=== PATIENT | female | born 1945 | race Hispanic/Latino ===

== ENCOUNTER 2022-09-26 09:51 | Emergency (ER) | payer MEDICARE ==
[~2022-09-26] VITALS: Ht 154.9 cm; Wt 72.6 kg
[2022-09-26 10:27] LABS: BASOPHILS % (AUTO) 0.4 % (0.0-5.0); EOSINOPHILS % (AUTO) 0.6 % (0.0-8.0); LYMPHOCYTES % (AUTO) 18.9 % (21.0-51.0); MEAN CORPUSCULAR HEMOGLOBIN 29.5 pg (27.0-33.0); MEAN CORPUSCULAR HGB CONC 33.5 g/dL (32.0-36.0); MEAN CORPUSCULAR VOLUME 88.1 fL (79-99); MONOCYTES % (AUTO) 7.9 % (3.0-13.0); PLATELET COUNT (AUTO) 206 K/uL (130-400); RED BLOOD CELL COUNT(AUTO) 4.54 MIL/uL (4.00-5.50); RED CELL DISTRIBUTION WIDTH 12.7 % (11.0-15.5); WHITE BLOOD COUNT (AUTO) 5.1 K/uL (4.8-10.8)
[2022-09-26 10:47] LABS: CREATININE 0.8 mg/dL (0.5-1.5); POTASSIUM 3.3 mmol/L (3.5-5.1)
[2022-09-26 10:52] LABS: ALBUMIN 3.6 g/dL (3.5-5.0)
[2022-09-26 11:20] LABS: APPEARANCE,URINE CLEAR (CLEAR); BILIRUBIN,URINE NEGATIVE (NEGATIVE); COLOR,URINE YELLOW (YELLOW); GLUCOSE, URINE (UA) NEGATIVE (NEGATIVE); KETONES,URINE NEGATIVE (NEGATIVE); LEUKOCYTE ESTERASE ,URINE NEGATIVE Leu/uL (NEGATIVE); NITRATE,URINE NEGATIVE (NEGATIVE); OCCULT BLOOD,URINE NEGATIVE (NEGATIVE); PROTEIN,URINE 20 mg/dL (NEGATIVE); UROBILINOGEN,URINE 0.2 mg/dL (0.2-1.0)
[2022-09-26 14:03] VITALS: BP 138/61
== END 2022-09-26 14:02 | disposition home or self-care (01) ==
LOC: EDH 09:51
DX: I10 Essential (primary) hypertension (principal); Z88.8 Allergy status to other drugs, medicaments and biological substances; Z98.890 Other specified postprocedural states
CPT/HCPCS: 36415; 70450; 80053; 81003; 84484; 85025; 93005

== ENCOUNTER 2023-09-06 15:58 | Emergency (ER) | payer MEDICARE ==
[~2023-09-06] VITALS: Ht 152.4 cm; Wt 68.9 kg
[2023-09-06] MEDS ORDERED: KETOROLAC 60 MG VIAL (30MG/ML) IM ONE (16:50)
[2023-09-06 16:54] LABS: BASOPHILS # (AUTO) 0.03 K/uL (0.00-0.20); BASOPHILS % (AUTO) 0.6 % (0.0-5.0); EOSINOPHILS # (AUTO) 0.09 K/uL (0.00-0.70); EOSINOPHILS % (AUTO) 1.7 % (0.0-8.0); HEMATOCRIT 37.2 % (36-48); IMMATURE GRANULOCYTE ABSOLUTE 0.02 K/uL (0-1); LYMPHOCYTES # (AUTO) 1.5 K/uL (1.0-4.8); LYMPHOCYTES % (AUTO) 29.1 % (21.0-51.0); MEAN CORPUSCULAR HEMOGLOBIN 29.7 pg (27.0-33.0); MEAN CORPUSCULAR HGB CONC 33.3 g/dL (32.0-36.0); MONOCYTES # (AUTO) 0.5 K/uL (0.1-1.0); MONOCYTES % (AUTO) 8.9 % (3.0-13.0); NEUTROPHILS # (AUTO) 3.1 K/uL (1.8-7.7); NEUTROPHILS % (AUTO) 59.3 % (40.0-77.0); PLATELET COUNT (AUTO) 220 K/uL (130-400); RED BLOOD CELL COUNT(AUTO) 4.18 MIL/uL (4.00-5.50); RED CELL DISTRIBUTION WIDTH 12.7 % (11.0-15.5); WHITE BLOOD COUNT (AUTO) 5.3 K/uL (4.8-10.8)
[2023-09-06] MEDS ORDERED: KETOROLAC 30MG VIAL (30MG/ML) IM ONE (17:00)
[2023-09-06 17:04] LABS: POTASSIUM 3.4 mmol/L (3.5-5.1)
[2023-09-06 17:15] LABS: ALBUMIN 3.3 g/dL (3.5-5.0); BILIRUBIN,TOTAL 0.8 mg/dL (0.2-1.0); TOTAL PROTEIN, SERUM 7.2 g/dL (6.0-8.3)
[2023-09-06 18:38] VITALS: BP 164/79; PULSE 60; RESP 18; O2SAT 99
== END 2023-09-06 18:40 | disposition home or self-care (01) ==
LOC: EDH 15:58
DX: K65.4 Sclerosing mesenteritis (principal); M79.652 Pain in left thigh; M25.552 Pain in left hip; I10 Essential (primary) hypertension; Z98.890 Other specified postprocedural states; Z88.8 Allergy status to other drugs, medicaments and biological substances
CPT/HCPCS: 99285; 73700; 80053; 85025; 36415; 72192; 96372; J1885

== ENCOUNTER 2025-01-08 18:03 | Emergency (ER) | payer MEDICARE ==
[~2025-01-08] VITALS: Ht 157.5 cm; Wt 71.2 kg
[2025-01-08 18:43] LABS: BASOPHILS # (AUTO) 0.02 K/uL (0.00-0.20); BASOPHILS % (AUTO) 0.4 % (0.0-5.0); EOSINOPHILS # (AUTO) 0.11 K/uL (0.00-0.70); EOSINOPHILS % (AUTO) 2.2 % (0.0-8.0); HEMATOCRIT 38.3 % (36-48); IMMATURE GRANULOCYTE ABSOLUTE 0.01 K/uL (0-1); LYMPHOCYTES # (AUTO) 1.4 K/uL (1.0-4.8); MEAN CORPUSCULAR HEMOGLOBIN 29.9 pg (27.0-33.0); MEAN CORPUSCULAR HGB CONC 33.2 g/dL (32.0-36.0); MEAN CORPUSCULAR VOLUME 90.1 fL (79-99); MONOCYTES # (AUTO) 0.6 K/uL (0.1-1.0); MONOCYTES % (AUTO) 11.8 % (3.0-13.0); NEUTROPHILS # (AUTO) 2.8 K/uL (1.8-7.7); NEUTROPHILS % (AUTO) 56.4 % (40.0-77.0); PLATELET COUNT (AUTO) 203 K/uL (130-400); RED BLOOD CELL COUNT(AUTO) 4.25 MIL/uL (4.00-5.50); RED CELL DISTRIBUTION WIDTH 12.8 % (11.0-15.5); WHITE BLOOD COUNT (AUTO) 4.9 K/uL (4.8-10.8)
[2025-01-08 18:58] LABS: POTASSIUM 3.8 mmol/L (3.5-5.1)
[2025-01-08 19:09] LABS: B-TYPE NATRIURETIC PEPTIDE 52 pg/mL (0-100)
--- NOTE | 2025-01-08 19:31 | HMCIMG ---
CHEST 1VW CLINICAL HISTORY: CHEST PAIN COMPARISON: None TECHNIQUE: Single view of the chest was obtained. FINDINGS: Lungs are clear. The cardiac size and mediastinum are unremarkable. The bony structures are within normal limits. IMPRESSION: No acute cardiopulmonary process identified.
[2025-01-08] MEDS: ketOROlac 15MG/ML VIAL (15MG/ML) IV ONE (20:05)
[2025-01-08 20:46] LABS: APPEARANCE,URINE CLEAR (CLEAR); BILIRUBIN,URINE NEGATIVE (NEGATIVE); COLOR,URINE COLORLESS (YELLOW); GLUCOSE, URINE (UA) NEGATIVE (NEGATIVE); KETONES,URINE NEGATIVE (NEGATIVE); LEUKOCYTE ESTERASE ,URINE 250 Leu/uL (NEGATIVE); NITRATE,URINE NEGATIVE (NEGATIVE); PROTEIN,URINE NEGATIVE (NEGATIVE); UROBILINOGEN,URINE 0.2 mg/dL (0.2-1.0)
--- NOTE | 2025-01-08 20:49 | HMCIMG ---
SHOULDER COMP 2+VWS LT CLINICAL HISTORY: painful rom COMPARISON: None TECHNIQUE: 2 images were obtained. FINDINGS: No obvious fracture or dislocation. No joint effusion. The soft tissues appear unremarkable. No radiopaque foreign bodies. IMPRESSION: No acute findings.
[2025-01-08 20:58] LABS: ADD UA MICROSCOPIC YES
[2025-01-08 21:00] LABS: BACTERIA,URINE RARE /HPF (None Seen); RBC,URINE 0-1 /HPF (0-1); SQUAMOUS EPITHELIAL CELL,UR RARE /HPF (0-2)
[2025-01-08] MEDS ORDERED: KETO10TA2 PO (21:01)
--- NOTE | 2025-01-08 21:06 | ERN ---
General Chief Complaint: Chest Pain Stated Complaint: CHEST PAIN Time Seen by MD: 18:07 Time Seen by Midlevel: 18:07 Source: patient History of Present Illness Initial Comments The patient is a 79-year-old female with a past medical history of hypertension presenting to the emergency department for evaluation of left-sided chest pain and left upper arm pain that started last night. Your concerns the patient more is the pain overlying her biceps area. The pain is worse with movement. Denies any recent injury or fall. Denies any other symptoms at this time. Allergies: Coded Allergies: iodine (Unverified Allergy, Unknown, 09/26/22) Past Medical History Past Medical History: Hypertension Past Surgical History: Other Surgical History Other: THYROID ROS Dictation CONSTITUTIONAL: Negative except for HPI HEAD/FACE: Negative except for HPI EENT: Negative except for HPI RESPIRATORY: Negative except for HPI GASTROINTESTINAL/ABDOMINAL: Negative except for HPI GENITOURINARY: Negative except for HPI MUSCULOSKELETAL: Negative except for HPI INTEGUMENTARY: Negative except for HPI NEUROLOGICAL/PSYCH: Negative except for HPI HEMATOLOGIC/LYMPHATIC: Negative except for HPI All Systems Negative, Except as noted above. 13 point review of systems assessed and all negative except for above. Physical Exam Physical Exam Dictation Vital Signs reviewed General Appearance: Alert, oriented x 3, no acute distress, well developed, nourished. Head and Face: non-traumatic. Eyes: PERRL, pink conjunctivas, eyelid no trauma, anterior chamber with arcus senilis. Ears: Pinnas intact and no signs of trauma or erythema ear canals clear and no discharge TM no erythema Nose: No discharge, no bleeding. Oropharynx: Mouth normal, tongue pink, pharynx clear,no erythema, tonsils no exudates, no abscesses noted, mucous membrane moist Neck: Supple, non-tender, no thyromegaly, no masses, no JVD, no bruits Breast:Deferred Chest:No tenderness, no crepitus, no paradoxical movement, no retractions Lungs:Clear, well-ventilated, symmetric, no rales, no wheezing, no rhonchi, no stridor, good breath sounds bilaterally Heart: Regular rate, regular rhythm, no murmur, no gallops Vascular: no peripheral edema, Abdomen: Soft, positive bowel sounds, nondistended, no guarding, nontender, no rebound, no masses no hepatomegaly, no splenomegaly, no Mejia's sign, no hernias. Rectal: Deferred Genital: Deferred Neurological: Normal speech, motor function intact, sensory function intact Musculoskeletal: Neck nontender, full range of motion, back nontender, full range of motion, Extremities: nontender, full range of motion Skin: Color pink, dry, no turgor, no rash, no lacerations, no abrasions, no contusions. Lymphatic: Deferred Results Laboratory and Microbiology Lab and Micro Result Laboratory Tests Test 01/08/25 18:34 01/08/25 18:54 01/08/25 19:09 White Blood Count 4.9 K/uL (4.8-10.8) Red Blood Count 4.25 MIL/uL (4.00-5.50) Hemoglobin 12.7 g/dL (12.0-16.0) Hematocrit 38.3 % (36-48) Mean Corpuscular Volume 90.1 fL (79-99) Mean Corpuscular Hemoglobin 29.9 pg (27.0-33.0) Mean Corpuscular Hemoglobin Concent 33.2 g/dL (32.0-36.0) Red Cell Distribution Width 12.8 % (11.0-15.5) Platelet Count 203 K/uL (130-400) Mean Platelet Volume 10.3 fL (7.5-10.5) Immature Granulocyte % (Auto) 0.2 % (0-1) Neutrophils (%) (Auto) 56.4 % (40.0-77.0) Lymphocytes (%) (Auto) 29.0 % (21.0-51.0) Monocytes (%) (Auto) 11.8 % (3.0-13.0) Eosinophils (%) (Auto) 2.2 % (0.0-8.0) Basophils (%) (Auto) 0.4 % (0.0-5.0) Neutrophils # (Auto) 2.8 K/uL (1.8-7.7) Lymphocytes # (Auto) 1.4 K/uL (1.0-4.8) Monocytes # (Auto) 0.6 K/uL (0.1-1.0) Eosinophils # (Auto) 0.11 K/uL (0.00-0.70) Basophils # (Auto) 0.02 K/uL (0.00-0.20) Absolute Immature Granulocyte (auto 0.01 K/uL (0-1) Nucleated Red Blood Cells 0.0 % (0.0-0.19) Sodium Level 140 mmol/L (136-145) Potassium Level 3.8 mmol/L (3.5-5.1) Chloride Level 103 mmol/L (101-111) Carbon Dioxide Level 30 mmol/L (21-32) Blood Urea Nitrogen 21 mg/dL (7-18) H Creatinine 1.0 mg/dL (0.5-1.0) Glomerular Filtration Rate Calc 57 mL/min (>90) Random Glucose 104 mg/dL (70-105) Total Calcium 8.0 mg/dL (8.5-10.1) L Total Creatine Kinase 319 U/L (21-232) H Troponin I High Sensitivity 7 ng/L (4-50) B-Type Natriuretic Peptide 52 pg/mL (0-100) Troponin I < 0.05 ng/mL (0.00-0.05) < 0.05 ng/mL (0.00-0.05) Labs Reviewed?: Yes MDM MDM: The patient is a 79-year-old female with a past medical history of hypertension presenting to the emergency department for evaluation of left-sided chest pain and left upper arm pain that started last night. Your concerns the patient more is the pain overlying her biceps area. The pain is worse with movement. Denies any recent injury or fall. Denies any other symptoms at this time. On physical examination the patient is in no acute distress. There is some mild tenderness overlying the left humerus with no obvious signs of external trauma or bruising. Cardiac workup was initiated given patient's age, comorbidities, and clinical presentation. EKG does not show any ST elevations or bundle branch blocks. EKG shows normal sinus rhythm with a ventricular rate of 76 beats per minute. CBC and chemistries are stable. Cardiac enzymes are negative. Chest x-ray does not show any acute abnormality. Left shoulder x-ray is negative as well. Patient was given pain medication in the ER and states her symptoms have completely resolved. Symptoms are most likely musculoskeletal in nature. We will treat with a short course pain medication outpatient. The patient was advised to follow up with your primary care doctor and director of industrial relations for further evaluation. The patient was given an orthopedic referral for outpatient management if her pain persists. Differential diagnosis: ACS, costochondritis, musculoskeletal There are no social concerns with this patient. Prescription drug management Prescriptions will include: Ketorolac Medical management and examination interpretation discussions were had by me with other qualified healthcare professionals as indicated for the patient's care. ED Course Orders Procedure Category Date Status Time Vital Signs Per CPOE 01/08/25 Transmitted Routine 18:19 B-Type Natriuretic LAB 01/08/25 Complete Peptide 18:19 Chest 1vw RAD 01/08/25 Resulted 18:19 12 Lead Ekg Tracing- EKG 01/08/25 Logged Technical 18:19 Oxygen By Nc/Pulse Ox CPOE 01/08/25 Transmitted 18:19 Maintain Iv CPOE 01/08/25 Transmitted 18:19 Iv Insertion CPOE 01/08/25 Transmitted 18:19 Cardiac Monitoring CPOE 01/08/25 Transmitted 18:19 Pulse Oximetry With CPOE 01/08/25 Transmitted Vs And Prn 18:19 Cbc With Differential LAB 01/08/25 Complete 18:19 Activity: Br W/Brp CPOE 01/08/25 Transmitted With Assist 18:19 Creatine Kinase, Total LAB 01/08/25 Complete 18:19 Urinalysis Profile LAB 01/08/25 In Process 18:19 Troponin Poc Order LAB 01/08/25 Complete Only 18:19 Bedside Troponin-I LAB.ER 01/08/25 In Process (Poc) 18:19 Basic Metabolic Panel LAB 01/08/25 Complete 18:19 Troponin I High LAB 01/08/25 Complete Sensitivity 18:28 Shoulder Comp 2+Vws Lt RAD 01/08/25 Taken 18:56 Ketorolac PHA 01/08/25 Complete Tromethamine 15mg/Ml 20:00 Current Medications Medications (Trade) Dose Ordered Sig/Dat Route PRN Reason Start Time Stop Time Status Last Admin Dose Admin Ketorolac Tromethamine (toRADol) 15 mg ONCE ONCE IV 01/08/25 20:00 01/08/25 20:01 DC 01/08/25 20:05 Vital Signs Date Time Temp Pulse Resp B/P (MAP) Pulse Ox O2 Delivery O2 Flow Rate FiO2 01/08/25 19:44 98.8 78 20 143/62 98 Room Air* 0 21 01/08/25 18:55 98.2 68 16 151/64 98 Room Air* 0 21 01/08/25 18:06 98.8 77 20 155/70 98 Room Air 0 [facility] [address] [place] [id number] IMAGING REPORT Signed PATIENT: ADAN SAM MR#: [id number] : 1945 SEX: F AGE: 79 LOCATION: [facility] ORDER 55 STATUS: REG ER REPORT#: [id number] SERVICE 55 REASON: painful rom ORDERING PHYSICIAN: GAVIN JAMISON PROCEDURE: SHOL 2V LT - SHOULDER COMP 2+VWS LT SHOULDER COMP 2+VWS LT CLINICAL HISTORY: painful rom COMPARISON: None TECHNIQUE: 2 images were obtained. FINDINGS: No obvious fracture or dislocation. No joint effusion. The soft tissues appear unremarkable. No radiopaque foreign bodies. IMPRESSION: No acute findings. DICTATED BY: IRAIS TARANGO DO DATE: 01/08/252040 ELECTRONICALLY SIGNED BY: IRAIS TARANGO DO DATE: 01/08/252048 [place] [id number] [place] [address] [id number] IMAGING REPORT Signed PATIENT: ADAN SAM MR#: [id number] : 1945 SEX: F AGE: 79 LOCATION: ED ORDER 19 STATUS: REG ER REPORT#: [id number] SERVICE 18 REASON: CHEST PAIN ORDERING PHYSICIAN: CAROLINA ZARATE MD PROCEDURE: CXR1VW - CHEST 1VW CHEST 1VW CLINICAL HISTORY: CHEST PAIN COMPARISON: None TECHNIQUE: Single view of the chest was obtained. FINDINGS: Lungs are clear. The cardiac size and mediastinum are unremarkable. The bony structures are within normal limits. IMPRESSION: No acute cardiopulmonary process identified. DICTATED BY: IRAIS TARANGO DO DATE: 01/08/251924 ELECTRONICALLY SIGNED BY: IRAIS TARANGO DO DATE: 01/08/251930 HEART Score Response (Comments) Value History: Low suspicion (0) 0 EKG: Normal 0 Age: > 65yrs (+2) 2 Risk Factors: 1-2 risk factors (+1) 1 Initial Troponin: Normal limit (0) 0 HEART Score Risk: Low Risk for MACE (1-3) Total 3 DX & DISP Disposition: Discharge Departure Impression: Primary Impression: Non-cardiac chest pain Additional Impression: Left upper arm pain Condition: Stable Scripts Ketorolac Tromethamine (Ketorolac Tromethamine) 10 Mg Tablet 1 TAB PO BID for pain for 3 Days, #6 TAB 0 Refills Prov: GAVIN JAMISON 01/08/25 Additional Instructions: Your blood work today is unremarkable. Your cardiac enzymes are negative. Your EKG does not show any evidence of a heart attack. Your chest x-ray is normal. Your left shoulder x-ray does not show any acute fracture or dislocation. Please follow up with your primary care doctor in 2-3 days for repeat evaluation. Referrals: ALISE HUTCHINS (PCP) SÁNCHEZ PACKER MD Time of Disposition: 21:00 I have reviewed the case, and I agree with, Diagnosis and Plan I performed the substantive portion of the visit. I have reviewed and personally made and approve the management plan that is documented in the note by myself or the POOJA. I acknowledge for responsibility for the patient's management plan. GAVIN JAMISON Jan 08, 2025 21:06
[2025-01-08 21:07] VITALS: BP 137/69; PULSE 72; RESP 18; TEMP 98; O2SAT 98
--- NOTE | 2025-01-09 06:49 | EKG ---
[facility] Test Date: 2025-01-08 Test Time: 18:09:44 Pat Name: ADAN SAM Department: [facility] Room: Gender: F Store Specialist: [id number] : 1945 Requested By: CAROLINA RUSSELL Order Number: [id number] Reading MD: Fernie Harper Measurements Intervals [place] Rate: 76 P: 59 [place]: 186 QRS: 3 QRSD: 81 T: 37 QT: 389 QTc: 437 Interpretive Statements Sinus rhythm Electronically Signed On 01-09-2025 16:36:27 STATION INSPECTOR by Fernie Harper Please click the below link to view image of tracing.
== END 2025-01-08 21:16 | disposition home or self-care (01) ==
LOC: EDH 18:03
DX: R07.89 Other chest pain (principal); M79.622 Pain in left upper arm; I10 Essential (primary) hypertension; Z88.8 Allergy status to other drugs, medicaments and biological substances; Z91.041 Radiographic dye allergy status
CPT/HCPCS: 99285; 96374; 71045; 82550; 84484 ×2; 80048; 83880; 85025; 87086; 81001; 36415; 73030; 93005; J1885